=== PATIENT | female | born 1970 | race Caucasian/White ===

== ENCOUNTER 2018-11-26 14:19 | Outpatient (CLI) | payer BC ==
--- NOTE | 2018-11-26 15:47 | RAD ---
LEFT ANKLE THREE VIEWS: 11/26/18 HISTORY: Left ankle pain . FINDINGS: Ankle mortise and talar dome are intact. No acute fracture, dislocation, or aggressive osseous erosio ns. IMPRESSION: No acute osseous abnormalities are demonstrated. POS: BAL
--- NOTE | 2018-11-26 15:50 | RAD ---
LEFT FOOT THREE VIEWS: 11/26/18 HISTORY: Left foot pain. Injury. FINDINGS: Lisfranc joint alignment is anatomic. Plantar arch is maintained. Mild osteophytosis throughout the f oot. Some midfoot varus is apparent on the oblique views. Mild hallux valgus and bunion deformity wit h subchondral sclerosis at the first metatarsophalangeal joint. IMPRESSION: Mild osteoarthritic changes first metatarsophalangeal joint with mild hallux valgus and bunion deform ity. No acute osseous abnormalities are demonstrated. POS: BAL
== END 2018-11-26 14:20 | disposition home or self-care (01) ==
LOC: BICRAD 14:19
PROVIDERS: ATTEND Podiatrist
DX: M25.572 Pain in left ankle and joints of left foot (principal); M19.072 Primary osteoarthritis, left ankle and foot; M20.12 Hallux valgus (acquired), left foot; M20.62 Acquired deformities of toe(s), unspecified, left foot

== ENCOUNTER 2019-02-17 07:53 | Outpatient (CLI) | payer BC ==
--- NOTE | 2019-02-17 09:28 | RAD ---
RIGHT ANKLE THREE VIEWS: History: Injured right ankle. FINDINGS: There is a prominent calcaneal spur at the insertion of the plantar fascia. There are minimal arthrit ic changes of the ankle joint. There are no signs of fracture. IMPRESSION: No acute injury. POS: TPC
--- NOTE | 2019-02-17 12:20 | MRI ---
MRI LEFT ANKLE: Date: 02-17-19 Provided Clinical History: Posterior left ankle pain. FINDINGS: The anterior extensor, medial flexor, perineal and Achilles tendons demonstrate an intact MR appearan ce. The medial and lateral ankle ligaments appear intact. No focal articular cartilage defect is apparent. No regional joint effusion is evident. Alignment jenni ears anatomic. Joint spaces appear preserved. There is preservation of the normal fat signal intensity within the tarsal sinus. The plantar aponeur osis appears normal. The courses of the regional major neurovascular structures appear unremarkable. There is a physiologi c amount of retrocalcaneal bursal fluid. There is normal MR appearance of the [place] fat. IMPRESSION: 1. Unremarkable MRI of the left ankle. POS: TPC
== END 2019-02-17 07:54 | disposition home or self-care (01) ==
LOC: SCSMRI 07:53
PROVIDERS: ATTEND Podiatrist
DX: M25.572 Pain in left ankle and joints of left foot (principal); S99.911D Unspecified injury of right ankle, subsequent encounter

== ENCOUNTER 2019-02-27 11:28 | Outpatient (CLI) | payer BC ==
--- NOTE | 2019-02-27 13:34 | MMO ---
Bilateral MAMMO Bilat Screen [facility]. CLINICAL HISTORY: Patient is 48 years old and is seen for screening. The patient has the following family history of breast cancer: mother, at age 52. The patient has no personal history of cancer. VIEWS: The views performed were: bilateral craniocaudal with tomosynthesis and bilateral mediolateral oblique with tomosynthesis. FILMS COMPARED: The present examination has been compared to prior imaging studies performed at [facility] on 10/29/2006, 09/06/2008, 11/01/2009, 09/20/2011, 03/05/2014, 03/10/2015, 05/01/2016 and 06/27/2017. MAMMOGRAM FINDINGS: The breasts are heterogeneously dense, which could obscure a lesion on mammography. There are benign appearing calcifications seen in both breasts. There are no suspicious masses, suspicious calcifications, or new areas of architectural distortion. IMPRESSION: THERE IS NO MAMMOGRAPHIC EVIDENCE OF MALIGNANCY. A ROUTINE FOLLOW-UP MAMMOGRAM IN 1 YEAR IS RECOMMENDED. THE RESULTS OF THIS EXAM WERE SENT TO THE PATIENT. ACR BI-RADS Category 2 - Benign finding MAMMOGRAPHY NOTE: 1. A negative mammogram report should not delay a biopsy if a dominant of clinically suspicious mass is present. 2. Approximately 10% to 15% of breast cancers are not detected by mammography. 3. Adenosis and dense breasts may obscure an underlying neoplasm.
== END 2019-02-27 11:29 | disposition home or self-care (01) ==
LOC: BICMAMMO 11:28
PROVIDERS: ATTEND Obstetrics & Gynecology
DX: Z12.31 Encounter for screening mammogram for malignant neoplasm of breast (principal); Z80.3 Family history of malignant neoplasm of breast
CPT/HCPCS: 77063; 77067